=== PATIENT | female | born 1970 | race Caucasian/White ===

== ENCOUNTER 2019-10-31 15:30 | Emergency (ER) | payer BC, SELFPAY ==
[2019-10-31 15:32] VITALS: BP 109/56; PULSE 79; RESP 16; TEMP 36.6; O2SAT 100
--- NOTE | 2019-10-31 15:38 | ED.WOUNDLAC ---
HPI - Wound/Laceration General Chief Complaint: Wound/Laceration Stated Complaint: L HAND LACERATION Time Seen by Provider: 10/31/19 15:34 History of Present Illness HPI narrative: The patient, who is right-handed on minimal meds, presents with left hand laceration. She states she just cut her ulnar hand along the ulnar aspect of her fifth metacarpal, just reaching the lateral MCP J. She did this that as she was reaching horizontally, across her kitchen backsplash; no numbness/weakness, foreign body, tendon joint/exposure. Symptoms are mild, worse with activity, better with compression or elevation. tetanus status current , she has had prior injury with some residual numbness Related Data Home Medications Medication Instructions Recorded Confirmed alprazolam 10/31/19 estradiol 10/31/19 sumatriptan succinate mg PO 10/31/19 ubrogepant [Ubrelvy] mg 10/31/19 Allergies Allergy/AdvReac Type Severity Reaction Status Date / Time latex Allergy Mild Verified 05/09/10 15:47 Review of Systems Review of Systems: Narrative: General/Constitutional: No weight loss,fever Eyes: N0: Redness,discharge Ears/Nose/Throat: No: Epistaxis,ear discharge Respiratory: Denies: Hemoptysis Gastrointestinal: No Vomiting, Bleeding-rectal Skin: No Lumps, eruption Neurologic: No Focal Weakness,Sz Hematologic: Denies: Petechiae/Purpura Psychiatric: No: Suicida ideationl All Other Systems: Reviewed and Negative PMFSH Comments At time of signature, agree with nursing past medical, surgical, social and family history. There is no relevant family history pertinent to the presenting complaint Exam Narrative: Exam Narrative: General Appearance: Well appearing, Well nourished, No distress EYE: PERRLA, EOMI, Conjunctiva clear Ears: External ear normal, Auditory canal normal Nose: Normal nose, Nares clear Mouth/Throat: Normal appearing, Normal lips Neck: Supple Respiratory: Airway patent, No respiratory distress Skin: Warm, Dry, Normal color, sensation intact to LT , ~3 cm ulnar hand lac MS- hand : Normal strength (mostly intact, limited flexion/extension by pain), Tenderness ( ulnar/laterally, with mild decreased ROM,, No swelling , Other (no anterior drawer, no collateral laxity, Neurological: A&O x3, Speech clear, CN II-XII intact Psychiatric: Normal mood, Normal affect Course Vital Signs Vital signs: Vital Signs Temperature 98 F 10/31/19 15:32 Pulse Rate 79 10/31/19 15:32 Respiratory Rate 16 10/31/19 15:32 Blood Pressure 109/56 L 10/31/19 15:32 Pulse Oximetry 100 10/31/19 15:32 Temperature 98 F 10/31/19 15:32 Pulse Rate 79 10/31/19 15:32 Respiratory Rate 16 10/31/19 15:32 Blood Pressure 109/56 L 10/31/19 15:32 Pulse Oximetry 100 10/31/19 15:32 Procedures Laceration Laceration 1: Date: 10/31/19 Site: hand Side (If applicable): left Size (cm): 3 Description: linear and clean Depth: simple, single layer Local Anesthetic: none (Topical) Pre-repair: irrigated extensively ====== Skin Level ====== Skin layer closed with: nylon Size (cm): 5-0 Technique: simple, interrupted ====== Subcutaneous Layer ====== Number of sutures: 5 Technique: simple, interrupted ====== Muscle Layer ====== ====== Tendon Layer ====== Discharge Plan Discharge Clinical Impression: Laceration of hand, left Patient Disposition: Home, Self-Care Condition: Improved Instructions: Laceration (ED) Additional Instructions: Remove 5 stitches in 7 days Prescriptions: New tramadol 50 mg tablet 50 mg PO Q6H PRN (Reason: pain) Qty: 12 RF: 0 mupirocin 2 % ointment 1 applic TOPICAL TID Qty: 30 RF: 0 cephalexin 750 mg capsule 750 mg PO Q12H Qty: 7 RF: 0 No Action alprazolam 0.25 mg tablet RF: 0 Ubrelvy 50 mg tablet RF: 0 sumatriptan succinate 100 m
--- NOTE | 2019-10-31 16:32 | PC.NURSE ---
1610-- med adacel taken out of pyxis and given to pt per verbal order per dr bruce. med isnt crossing over to the MAR where i can chart against it, and i called pharmacy and they can also see the order and unsure why it is not crossing over to the MAR sheet either. medication given in the right deltoid at 1610- adacel lot # [id number] expiration 23 MAR 2021 and manufacture is [employer] coy.
== END 2019-10-31 16:17 | disposition home or self-care (01) ==
PROVIDERS: Emergency Provider Emergency Medicine
DX: S61.412A Laceration without foreign body of left hand, initial encounter (principal); W26.8XXA Contact with other sharp object(s), not elsewhere classified, initial encounter; Z23 Encounter for immunization
CPT/HCPCS: 12002; 90471; 90715; 99203; G0463

== ENCOUNTER 2023-02-01 18:28 | Emergency (ER) | payer BC, SELFPAY ==
--- NOTE | 2023-02-01 18:34 | ED.GENADULT ---
HPI - General Adult General Chief complaint: Urogenital-Female Stated complaint: possible reaction to med/poss uti Source: patient and RN notes reviewed History of Present Illness HPI narrative: 52-year-old female presents to urgent care today complaining of a possible medication reaction and possible UTI. Patient states she has a history of migraines says she sees a neurologist. Patient stated today she took her monthly injection for her migraines, however, continued having a migraine and decided to take a new medication, atogepant, her neurologist prescribed. Pt took a nap immediately afterwards and woke up with severe bilateral thigh cramps and pain. Pt reports feeling weak in her legs and felt like she could not walk right. Patient stated her legs felt like she just had a hard core leg day. Patient was reading side effects of the medication she took earlier today that said there is a increased risk for peripheral ischemia or blood clot. patient denies any chest pain or shortness of breath. Patient denies any calf pain, swelling, discolored extremities. Patient has stated since she has been awake, her symptoms have improved however she still states having bilateral thigh soreness. Patient is ambulatory with a steady gait at this time. Patient is also concerned for UTI because over the last 3 days she has had increased urinary frequency and feels like she is not able to empty her bladder when she goes to the bathroom. Patient denies any burning sensation with urination, abdominal pain, flank pain, fevers, chills, or hematuria. Patient is currently on her period. Pt also takes spironolactone daily. Related Data Home Medications Medication Instructions Recorded Confirmed cholecalciferol (vitamin D3) 25 1,000 unit PO DAILY 05/12/22 02/01/23 mcg (1,000 unit) tablet cyanocobalamin (vitamin B-12) 1,000 mcg PO DAILY 05/12/22 02/01/23 1,000 mcg tablet liothyronine 5 mcg tablet 5 mcg PO DAILY 05/12/22 02/01/23 polyethylene glycol 3350 17 17 g PO DAILY constipation 05/12/22 02/01/23 gram/dose oral powder (Miralax) ubrogepant 100 mg tablet (Ubrelvy) 100 mg PO ONCE PRN migraine 05/12/22 02/01/23 atogepant 60 mg tablet (Qulipta) 60 mg PO DAILY 01/17/23 02/01/23 norethindrone 1 mg-ethinyl 1 tablet PO DAILY 01/17/23 02/01/23 estradiol 10 mcg (24)-iron 10 mcg(2) tablet (Lo Loestrin Fe) drospirenone (contraceptive) 4 mg 1 tablet PO DAILY 02/01/23 02/01/23 (28) tablet (Slynd) galcanezumab-gnlm 120 mg/mL 120 mg subcut DIRECTED 02/01/23 02/01/23 subcutaneous pen injector (Emgality Pen) levothyroxine 50 mcg tablet 50 mcg PO DAILY 02/01/23 02/01/23 (Synthroid) spironolactone 50 mg tablet 50 mg PO DAILY 02/01/23 02/01/23 Allergies Allergy/AdvReac Type Severity Reaction Status Date / Time latex Allergy Mild Itching Verified 02/01/23 18:40 Review of Systems Review of Systems: CONSTITUTIONAL: Denies fever, chills, or sweats. EYES: Denies visual changes, redness, or discharge. ENT: Denies otalgia and sore throat CARDIOVASCULAR: Denies chest pain, palpitations, or edema. RESPIRATORY: Denies cough or dyspnea. GASTROINTESTINAL: Denies abdominal pain, nausea, vomiting, or diarrhea. GENITOURINARY: Denies dysuria or hematuria. Positive for increased frequency. SKIN: Denies rash or itching. MUSCULOSKELETAL: Positive for bilateral thigh soreness NEUROLOGIC: Denies numbness or weakness. Positive for migraine Pertinent positives per HPI. [facility] Past Medical History Medical History (Updated 02/01/23 @ 19:10 by Mili Niño, COUNCIL MEMBER) Acute non-recurrent maxillary sinusitis BMI 25.0-25.9,adult Chronic constipation (~2021) worse with migraine medicine Chronic migraine without aura without status migrainosus, not intractable COVID-19 patient reports COVID illness 3 times with last episode January,. 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
[2023-02-01 18:37] VITALS: BP 111/65; PULSE 83; RESP 16; TEMP 36.9; O2SAT 99
== END 2023-02-01 19:12 | disposition home or self-care (01) ==
PROVIDERS: Emergency Provider Nurse Practitioner Family; PCP Family Medicine
DX: R25.2 Cramp and spasm (principal); T44.7X5A Adverse effect of beta-adrenoreceptor antagonists, initial encounter; E03.9 Hypothyroidism, unspecified; E06.3 Autoimmune thyroiditis; G47.33 Obstructive sleep apnea (adult) (pediatric); I47.1 Supraventricular tachycardia; E53.8 Deficiency of other specified B group vitamins
CPT/HCPCS: 81003; 99212; G0463

== ENCOUNTER 2023-08-01 23:03 | Emergency (ER) | payer BC, SELFPAY ==
[2023-08-01 23:06] VITALS: BP 134/85; PULSE 105; RESP 14; TEMP 36.9; O2SAT 98
--- NOTE | 2023-08-01 23:26 | PC.NURSE ---
Patient comes to triage desk, to request a bladder scan. Patient states I feel like my bladder is about to explode. I feel like I need a bladder scan. This RN spoke with pump and blower operator and was informed that patient will have to wait for a room to be available to perform a bladder scan. This RN relayed information to patient and patient stated so you guys don't go based on priority, I'm in a lot of pain and my bladder feels like its about to explode. This RN informed patient that patients are taken back to rooms based on priority and she will be taken back to a room when one is available for her. Patient then walked away from the desk speaking with her SO.
[2023-08-01 23:28] LABS: Appearance Urine Cloudy (Clear); Bacteria Urine None Seen /hpf; Bilirubin Urine Negative (Negative); Blood Urine Trace (Negative); Color Urine Yellow (Yellow); Glucose Urine UA Negative (Negative); Ketones Urine Negative (Negative); Leukocyte Esterase Ur Negative LEU/UL (Negative); Nitrate Urine Negative (Negative); Non Pathogenic Casts 0-2; Protein Urine Negative (Negative); RBC Urine 0-2 /hpf (0-2); Specific Grav Ur 1.006 (1.001-1.035); Squamous Epithelial Cell Urine None seen /hpf (Few); Urobilinogen Urine 0.2 mg/dL (<2.0); WBC Urine 0-5 /hpf
[2023-08-01 23:43] LABS: Add Urine Microscopic? YES
--- NOTE | 2023-08-01 23:56 | PC.NURSE ---
6196 Patient comes to desk to state my bladder is about to explode, and I am in so much pain. You can't do anything? I need to see a doctor. This RN educated patient that there is not a room available at this time, that she will have to wait to be seen by a provider and a room to become available. Patient began to raise her voice at this RN stating well I can't wait that long, this is ridiculous! I am in pain and my bladder hurts! This RN informed her that a bladder scan can be done in the back when she gets to a room, but one is not available at this time. Patient starts to yell, well, I am leaving, I can't wait any longer! Patient left ED with a steady gait with her belongings in hand and her by her side. Patient left before risks of leaving before being seen by a provider were given, patient was yelling as she was walking out of the ED.
== END 2023-08-01 23:47 | disposition left against medical advice (07) ==
PROVIDERS: Emergency Provider Physician Assistant; PCP Family Medicine
DX: Z53.21 Procedure and treatment not carried out due to patient leaving prior to being seen by health care provider (principal)
CPT/HCPCS: 81001; 81025; 99199

== ENCOUNTER 2024-09-13 09:56 | Outpatient (CLI) | payer BC, SELFPAY ==
--- NOTE | ~2024-09-13 | XR_ITS ---
EXAMINATION: XR wrist RT 2V, XR hand LT 2V, XR wrist LT 2V, XR hand RT 2V DATE: 09/13/2024 11:08 INDICATION: Multiple joint pain TECHNIQUE: 1. Posteroanterior and lateral views of the left wrist were obtained. 2. Dorsal palmar and lateral views of the left hand were obtained. 3. Posteroanterior and lateral views of the right wrist were obtained. 4. Dorsal palmar and lateral views of the right hand were obtained. COMPARISON: None. FINDINGS: Alignment of the bilateral hands and wrists is normal. No fracture identified. Joint spaces are nor mal. No erosions to suggest inflammatory arthritis. No focal soft tissue swelling. IMPRESSION: 1. Negative bilateral hand and wrist radiographs. Reviewed, dictated and finalized at location A. N RESOURCES SUPERVISOR IMPRESSION: 1. Negative bilateral hand and wrist radiographs. IMPRESSION: 1. Negative bilateral hand and wrist radiographs. IMPRESSION: 1. Negative bilateral hand and wrist radiographs.
--- NOTE | ~2024-09-13 | XR_ITS ---
EXAMINATION: XR sacroiliac joints min 3V DATE: 09/13/2024 11:08 INDICATION: Multiple joint pain TECHNIQUE: AP and left and right oblique views of the bilateral sacroiliac joints were obtained. COMPARISON: None. FINDINGS: Bone alignment is normal. No fracture. Sacral arches are intact. Mild osteoarthritis at the bilateral sacral iliac joints. No erosions to suggest inflammatory sacroiliitis. Lateral hip joint spaces appe ar relatively preserved. Sclerotic bone island at the left pubic body. IMPRESSION: 1. Mild bilateral sacral back osteoarthritis. Reviewed, dictated and finalized at location A. ICAL BRACE MAKER
--- NOTE | ~2024-09-13 | XR_ITS ---
EXAMINATION: XR ankle LT 2V, XR ankle RT 2V, XR foot LT 2V, XR foot RT 2V DATE: 09/13/2024 11:08 INDICATION: Multiple joint pain TECHNIQUE: 1. Anteroposterior and lateral view of the left ankle were obtained. 2. Dorsoplantar and lateral views of the left foot were obtained. 3. Anteroposterior and lateral view of the right ankle were obtained. 4. Dorsoplantar and lateral views of the right foot were obtained. COMPARISON: None. FINDINGS: Alignment of the bilateral feet and ankles is normal. No fracture or osteochondral lesion. Joint spac es are well maintained. Moderate sized bilateral plantar calcaneal spurs. No ankle joint effusion. Th e soft tissues are unremarkable. IMPRESSION: 1. Moderate sized bilateral plantar calcaneal spurs. Otherwise unremarkable bilateral foot and ankle radiographs. Reviewed, dictated and finalized at location A. [employer]M [employer] IMPRESSION: 1. Moderate sized bilateral plantar calcaneal spurs. Otherwise unremarkable marcie ateral foot and ankle radiographs. IMPRESSION: 1. Moderate sized bilateral plantar calcaneal spurs. Otherwise unremarkable marcie ateral foot and ankle radiographs. IMPRESSION: 1. Moderate sized bilateral plantar calcaneal spurs. Otherwise unremarkable marcie ateral foot and ankle radiographs.
== END 2024-09-13 09:57 | disposition home or self-care (01) ==
PROVIDERS: PCP Nurse Practitioner; Visit Provider Nurse Practitioner
DX: R53.81 Other malaise (principal); M77.32 Calcaneal spur, left foot; M77.31 Calcaneal spur, right foot; M46.1 Sacroiliitis, not elsewhere classified
CPT/HCPCS: 72202; 73100; 73120; 73600; 73620